=== PATIENT | male | born 1960 | race Caucasian/White ===

== ENCOUNTER → 2022-06-08 | Outpatient (CLI) | payer BC ==
[2022-06-08 22:46] LABS: HCT 56.4 % (39.6-50.0); MCH 31.6 pg (27.0-32.0); MCHC 31.9 g/dL (32.0-37.0); MCV 98.9 fL (80.0-97.0); Mean Platelet Volume 9.1 fL (9.5-12.2); NRBC Per 100 WBC 0 /100 WBCS (0.0-0.0); Platelet Count 175 X 10*3/uL (140-440); RDW 13.1 % (11.5-14.5); WBC 9.99 X 10*3/uL (4.50-10.00)
[2022-06-08 22:49] LABS: African American GFR (CKD) 84.1 (60.0-200.0); Blood Urea Nitrogen 15.5 mg/dL (9.0-27.0); Non-African American GFR(CKD) 72.6 (60.0-200.0); Potassium 5.1 mmol/L (3.5-5.5)
== END | disposition home or self-care (01) ==
LOC: LABWHC1 15:36
PROVIDERS: ATTEND Internal Medicine Cardiovascular Disease
DX: R94.31 Abnormal electrocardiogram [ECG] [EKG] (principal); R07.2 Precordial pain
CPT/HCPCS: 36415; 80051; 82565; 84520; 85027

== ENCOUNTER 2022-06-12 05:54 | Day surgery (SDC) | payer BC ==
[~2022-06-12 05:54] MED LIST: ALPRAZolam 0.25 MG TAB PO PRN; ALPRAZolam 0.5 MG TAB PO PRN; ASPIRIN 325 MG TAB PO STA; ATORVASTATIN 80 MG TAB PO STA; NITROGLYCERIN SL TABS 0.4 MG TAB SUBLINGUAL PRN; SODIUM CHLORIDE 0.9% 1,000 ML in EMPTY BAG 1 BAG IV SCH
[2022-06-12 06:43] VITALS: RESP 18; TEMP 97.7
[2022-06-12] MEDS ORDERED: HEPARIN SODIUM,PORCINE 2,500 UNIT in SODIUM CHLORIDE 0.9% 250 ML IRRIGATION PRN (07:00)
[2022-06-12] MEDS ORDERED: HEPARIN SODIUM,PORCINE 10,000 UNIT in SODIUM CHLORIDE 0.9% 1,000 ML IRRIGATION PRN (07:00)
[2022-06-12] MEDS ORDERED: fentaNYL (PF) 50 MCG/ML 2 ML AMP ONE (07:18)
[2022-06-12] MEDS ORDERED: HEPARIN SODIUM 1,000 UN/ML (10ML VL) ONE (07:18)
[2022-06-12] MEDS ORDERED: VERAPAMIL 2.5 MG/ML 2 ML AMP ONE (07:19)
[2022-06-12] MEDS ORDERED: fentaNYL (PF) 50 MCG/ML 2 ML AMP IV ONE (07:25)
[2022-06-12] MEDS ORDERED: MIDAZOLAM 2 MG/2 ML VIAL IV ONE (07:25)
[2022-06-12] MEDS ORDERED: LIDOCAINE 1% INJ 10MG/ML (5 ML VIAL-PF) SQ ONE (07:26)
[2022-06-12] MEDS ORDERED: VERAPAMIL SYRINGE (5 MG/10 ML) INTRAARTER ONE (07:27)
[2022-06-12] MEDS: HEPARIN SODIUM 1,000 UN/ML (10ML VL) IV ONE ×2 (07:32→08:26)
[2022-06-12] MEDS ORDERED: CLOPIDOGREL 75 MG TAB ONE (07:54)
[2022-06-12] MEDS ORDERED: CLOPIDOGREL 75 MG TAB PO ONE (08:03)
[2022-06-12] MEDS ORDERED: IOPAMIDOL-370 125ML BTL INJ ONE (08:40)
[2022-06-12] MEDS ORDERED: NITROGLYCERIN 1000MCG/10ML SYRINGE INTRACORON ONE (08:48)
[2022-06-12] MEDS ORDERED: IOPAMIDOL-370 100ML BTL INJ ONE (08:51)
[2022-06-12] MEDS ORDERED: NITROGLYCERIN SL TABS 0.4 MG TAB SUBLINGUAL PRN (08:57)
[2022-06-12] MEDS ORDERED: MAG HYDROX/AL HYDROX/SIMETH 30 ML CUP PO PRN (08:57)
[2022-06-12] MEDS ORDERED: ZOLPIDEM 5 MG TAB PO PRN (08:57)
[2022-06-12] MEDS ORDERED: RX INFO: IV CONTRAST WAS GIVEN 1 EACH MISC MISCELLANE PRN (08:57)
[2022-06-12] MEDS ORDERED: ATROPINE SULFATE 0.1 MG/ML 10ML SYRINGE IV PRN (08:57)
[2022-06-12] MEDS ORDERED: SODIUM CHLORIDE 0.9% 1,000 ML in EMPTY BAG 1 BAG IV SCH (09:00)
--- NOTE | 2022-06-12 09:04 | P.CARDCATH ---
Date of Procedure: 06/12/22 Description of Procedure: PERCUTANEOUS TRANSLUMINAL CORONARY ANGIOPLASTY CLINICAL INFORMATION: The patient is a 62-year-old male was been complaining of chest discomfort, had an abnormal stress test. Underwent cardiac catheterization by Dr. Caraballo and was found to have significant disease involving the distal dominant left circumflex. The procedure as well as the risks and the complications were discussed with the patient who was in full understanding and agreement. PROCEDURE: A 6 Armenian CLS 3.5 guiding catheter was introduced into the system. After cannulating the left main, a 0.014 BMW J wire was advanced across the lesion and positioned distally. Following that a 2.5 x 12 mm Treck balloon was advanced and inflated at 8 miranda atmosphere. Following that a 2.75 x 18 mm Xience leighton point stent was deployed. It was dilated at 14 miranda, after removing the balloon a 2.75 x 15 mm Xience leight[place] point stent was deployed proximal to the first one and dilated at 16 miranda. After the last inflation, after appropriate wait, the balloon and the guidewire were withdrawn back into the guiding catheter. Im ages were obtained and repeated. Those images reveal stable successful stenting. At that point, the guiding catheter, the balloon, and guidewire were removed. The sheath was removed. Hemostasis was obtained with deployment the TR band. There were no immediate complications. The patient was returned to the room in stable condition. Of note, the patient received 3000 units of heparin as well as Plavix. His ACT was followed. There was no immediate complications. He had no significant chest discomfort or EKG changes the inflations. RESULTS: Successful stenting of the distal left circumflex with reduction of stenosis from 95 % to 0 %. RECOMMENDATIONS: The patient will continue on aspirin and Plavix for 6 months without any disruption in addition to aggressive coronary risks modifications. The findings and recommendations were discussed with the patient and the family, they are in full understanding and agreement. Duration of sedation: 23 minutes
--- NOTE | 2022-06-12 11:50 | CC ---
CARDIAC CATHETERIZATION REPORT REFERRING PHYSICIAN: Ashli Mckeon. INDICATION: New onset chest pain with abnormal treadmill stress. PROCEDURE NOTE: After obtaining informed consent, left heart catheterization and coronary angiogram were performed via the right radial artery using standard Pierce catheters. Hemodynamics were obtained with the right Pierce. The patient tolerated the procedure well without any obvious immediate complications. He received 1 mg of Versed and 25 mcg of fentanyl and total sedation time was 18 minutes. Using a micropuncture needle, right radial artery access was obtained with Seldinger technique, and the catheter and wire were floated into the ascending aorta under fluoroscopic guidance. The patient received 5 mg of verapamil and 4000 units of heparin per protocol. Procedure was completed uneventfully. FINDINGS: HEMODYNAMICS: Left ventricular end-diastolic pressure is 12 mm. There is no significant gradient across the aortic valve. LEFT VENTRICULOGRAM: Not performed. ANGIOGRAPHIC DATA: LEFT MAIN CORONARY ARTERY: Left main coronary artery is a normal-sized vessel and is free of stenosis. Divides into left anterior descending coronary artery and circumflex coronary artery. CIRCUMFLEX CORONARY ARTERY: Circumflex coronary artery gives off a high OM branch that has a 40-50 percent stenosis. Distal circumflex coronary artery has a groove circ has a focal 95% stenosis. LEFT ANTERIOR DESCENDING CORONARY ARTERY: LAD and its branches are free of significant stenosis. RIGHT CORONARY ARTERY: Right coronary artery is a nondominant vessel shows moderate to severe diffuse disease involving proximal and mid areas. CONCLUSIONS: 1. Severe focal stenosis of at least 95% in circumflex coronary artery. 2. 40-50 percent stenosis involving first OM branch. 3. Diffuse disease involving the proximal nondominant right coronary artery. PLAN: We believe patient's symptoms are related to the circumflex coronary artery lesions and patient will undergo angioplasty with stent placement of the same. MMODL / IJN: [id number] /
--- NOTE | 2022-06-12 11:50 | LTR ---
DATE OF SERVICE: 06/12/2022 RE: Surendra Murraykatty Dear Ashli: I performed cardiac catheterization on Surendra Louis. A detailed cardiac catheterization note is enclosed for your records. In brief, cardiac catheterization revealed a focal 95% stenosis involving circumflex coronary artery which is responsible for his symptoms, abnormal stress test and patient will undergo stent of the same. Thank you for giving me the privilege to participate in the care of this pleasant gentleman. Sincerely, MMCLAUDIAL / IJN: [id number] /
[2022-06-12 12:22] VITALS: BP 118/58; PULSE 47
[2022-06-12] MEDS ORDERED: FAMOTIDINE 20 MG TAB PO SCH (21:00)
[2022-06-13] MEDS ORDERED: METOPROLOL SUCCINATE (ER) 25 MG TAB.ER.24H PO SCH (09:00)
[2022-06-13] MEDS ORDERED: ASPIRIN 81 MG PO SCH (09:00)
[2022-06-13] MEDS ORDERED: ISOSORBIDE MONONITRATE ER 30 MG TAB.ER.24H PO SCH (09:00)
[2022-06-13] MEDS ORDERED: ATORVASTATIN 40 MG TAB PO SCH (09:00)
[2022-06-13] MEDS ORDERED: CLOPIDOGREL 75 MG TAB PO SCH (09:00)
== END 2022-06-12 13:22 | disposition home or self-care (01) ==
LOC: CATHCVL 05:54
PROVIDERS: ATTEND Internal Medicine Cardiovascular Disease
DX: I25.10 Atherosclerotic heart disease of native coronary artery without angina pectoris (principal); N52.9 Male erectile dysfunction, unspecified; K21.9 Gastro-esophageal reflux disease without esophagitis; F17.210 Nicotine dependence, cigarettes, uncomplicated; Z79.899 Other long term (current) drug therapy; Z82.49 Family history of ischemic heart disease and other diseases of the circulatory system; Z82.5 Family history of asthma and other chronic lower respiratory diseases
CPT/HCPCS: 93458; C9600; C1769 ×2; C1887; C1894; C1725; C1874 ×2; J2250; J2001; J3010; J1644; Q9967 ×2

== ENCOUNTER 2022-06-19 15:49 | Inpatient (IN) | payer BC ==
[2022-06-19] MEDS ORDERED: HEPARIN SODIUM 1,000 UN/ML (10ML VL) IV PRN (16:16)
[2022-06-19] MEDS ORDERED: HEPARIN SOD,PORK IN 0.45% NACL 25,000 UNIT in 0.45% NACL 1 250ML.BAG IV SCH (16:30)
--- NOTE | 2022-06-19 16:40 | XR ---
EXAMINATION TYPE: XR chest 1V portable DATE OF EXAM: 06/19/2022 4:33 PM COMPARISON: None TECHNIQUE: XR chest 1V portable Portable AP radiograph of the chest. CLINICAL INDICATION:Male, 62 years old with history of chest pain; FINDINGS: Lungs/Pleura: There is no evidence of pleural effusion, focal consolidation, or pneumothorax. Pulmonary vascularity: Unremarkable. Heart/mediastinum: Cardiomediastinal silhouette is unremarkable. Musculoskeletal: No acute osseous pathology. IMPRESSION: No acute cardiopulmonary disease/process.
[2022-06-19] MEDS ORDERED: HEPARIN SODIUM 1,000 UN/ML (10ML VL) IV ONE (16:47)
[2022-06-19] MEDS ORDERED: NALOXONE 0.4 MG/ML 1 ML VIAL IV PRN (17:04)
--- NOTE | 2022-06-19 17:08 | ED ---
General Adult HPI - General Chief complaint: Chest Pain Stated complaint: Chest Pain Time Seen by Provider: 06/19/22 16:13 Source: patient, EMS, RN notes reviewed, old records reviewed Mode of arrival: EMS Limitations: no limitations - History of Present Illness Initial comments: Patient is a 62-year-old male who is transferred here from [facility] for chest pain. Patient recently had stents placed by Dr. Caraballo. Arrangements were made for direct admit, however there are no available beds here so patient was transferred to the emergency department. When he arrived I evaluated the patient. Plans for already made for admission under Dr. Vickers. Dr. Caraballo was consulted. Patient currently has no chest pain but states he has been having on again off again chest pain, that was worse last night. Was relieved with nitroglycerin this morning. Outpatient workup of the other facility showed normal troponin. EKG unremarkable. After discussion with the pulling machine operator as well as primary care physician, patient was transferred here for admission. Request was made to place the patient on a heparin drip. He already received 324 mg of aspirin at the other facility. Currently is chest pain-free. His no acute complaints at this time. Stents were placed on June 12. That was one week ago. - Related Data Home Medications Medication Instructions Recorded Confirmed Aspirin 81 mg PO DAILY 06/11/22 06/19/22 Atorvastatin [Lipitor] 40 mg PO DAILY 06/11/22 06/19/22 Famotidine [Pepcid] 20 mg PO BID 06/11/22 06/19/22 Isosorbide Mononitrate ER [Imdur] 30 mg PO DAILY 06/11/22 06/19/22 Metoprolol Succinate [Metoprolol 25 mg PO DAILY 06/11/22 06/19/22 Succinate ER] Nitroglycerin Sl Tabs [Nitrostat] 0.4 mg SUBLINGUAL Q5M PRN 06/11/22 06/19/22 Previous Rx's Medication Instructions Recorded Clopidogrel [Plavix] 75 mg PO DAILY #90 tab 06/12/22 Allergies Allergy/AdvReac Type Severity Reaction Status Date / Time No Known Allergies Allergy Verified 06/19/22 16:48 Review of Systems ROS Statement: Those systems with pertinent positive or pertinent negative responses have been documented in the HPI. Review of Systems: CONST: Denies fever EYES: Denies blurry vision ENT: Denies nasal congestion C/V: Denies Chest pain RESP: Denies shortness of breath GI: Denies abdominal pain : Denies dysuria SKIN: Denies rash. MSK: Denies joint pain. NEURO: Denies headache ROS Other: All systems not noted in ROS Statement are negative. Past Medical History Past Medical History: Chest Pain / Angina, GERD/Reflux, Hyperlipidemia, Hypertension Additional Past Medical History / Comment(s): intermittent chest pain for about a month, fatigue recently, varicose veins, increasing heartburn History of Any Multi-Drug Resistant Organisms: None Reported Past Surgical History: Orthopedic Surgery Additional Past Surgical History / Comment(s): hydrocele repair, right shoulder rotator cuff repair Past Anesthesia/Blood Transfusion Reactions: No Reported Reaction Past Psychological History: No Psychological Hx Reported Smoking Status: Former smoker Past Alcohol Use History: Rare Past Drug Use History: None Reported General Exam - General Exam Comments Initial Comments: General: Appears in no acute distress. HEAD: Normal with no signs of head trauma. EYES: PERRLA, EOMI, conjunctiva normal, no discharge. ENT: Hearing grossly intact, normal oropharynx. RESPIRATORY: Clear breath sounds bilaterally. No wheezes, rales, or rhonchi. C/V: Bradycardia with a history of bradycardia. Normal sinus rhythm. S1 and S2 auscultated, no edema, peripheral pulses 2+ and intact throughout ABD: Abd is soft, nontender, nondistended EXT: Normal range of motion, no obvious deformity SKIN: No rashes or lesions observed on exposed skin. NEURO: Alert and oriented 4. No focal deficits. Limitations: no limitations Course Vital Signs 06/19/22 06/19/22 16:01 16:12 Pulse Rate 48 L Pulse Rate [ 48 L Manager Commission ] Respiratory 16 Rate Blood Pressure 139/91 O2 Sat by Pulse 99 Oximetry Medical Decision Making - Medical Decision Making Based on the patient's presentation and physical exam, I'm concerned for cardiac etiology for his current symptoms. Currently is asymptomatic. As already agreed upon come patient will be started on a heparin drip. He already received aspirin. We'll repeat blood tests here. We'll trend the troponin. Echo will be ordered. He was in agreement this plan. Vital signs are within normal limits. Patient is chronic bradycardia. EKG shows no signs of acute ischemia. Chest x-ray shows no acute cardiopulmo nary process. Laboratory studies are remarkable for elevated troponin of 0.044.Troponin at outpatient facility was negative. I did notify cardiology on- call, Dr. Alonso. He was in agreement with the plan otherwise. Echo was ordered. Patient will be admitted to Dr. Vickers in stable condition. Patient is asymptomatic at this time. Vital signs remained within normal limits. - Lab Data Result diagrams: 06/19/22 17:04 06/19/22 17:04 - EKG Data -: EKG Interpreted by Me EKG Comments: 12-lead Electrocardiogram Interpretation Note EKG was reviewed and interpreted by myself. 12-lead ECG performed at 1621 is interpreted by me as revealing sinus bradycardia at a rate of 51 beats per minute. axis is normal. NV interval is 155 ms, QRS duration is 85 ms, QTc is 419 ms.. There were no ST or T wave abnormalities to suggest myocardial ischemia or injury. R wave progression across the precordium was satisfactory. By my interpretation this EKG is non-diagnostic for acute ischemia. No prior EKG for comparison. Disposition Clinical Impression: Unstable angina, Chest pain, NSTEMI (non-ST elevated myocardial infarction) Narrative: recent cardiac stenting Disposition: ADMITTED IP TO THIS HOSP Condition: Stable Time of Disposition: 17:00
[2022-06-19 17:16] LABS: Basophils # (A) 0.1 k/uL (0-0.2); Basophils % (A) 1 %; Eosinophils # (A) 0.2 k/uL (0-0.7); Eosinophils % (A) 3 %; HGB 15.5 gm/dL (13.0-17.5); Lymphocytes # (A) 2.9 k/uL (1.0-4.8); Lymphocytes % (A) 41 %; MCH 32.6 pg (25.0-35.0); MCHC 32.2 g/dL (31.0-37.0); MCV 101.2 fL (80.0-100.0); Mean Platelet Volume 7.7; Monocytes # (A) 0.5 k/uL (0-1.0); Monocytes % (A) 7 %; Neutrophils # (A) 3.3 k/uL (1.3-7.7); Neutrophils % (A) 46 %; Platelet Count 187 k/uL (150-450); RBC 4.74 m/uL (4.30-5.90); RDW 12.5 % (11.5-15.5); WBC 7.1 k/uL (3.8-10.6)
[2022-06-19 17:25] LABS: ALT 24 U/L (4-49); AST 53 U/L (17-59); African American GFR (CKD) >90 (>60 ml/min/1.73 sqM); Albumin 3.8 g/dL (3.5-5.0); Alkaline Phosphatase 63 U/L (38-126); Anion Gap 4 mmol/L; Blood Urea Nitrogen 24 mg/dL (9-20); Calcium 9.6 mg/dL (8.4-10.2); Carbon Dioxide 30 mmol/L (22-30); Chloride 106 mmol/L (98-107); Glucose 92 mg/dL (74-99); Magnesium 1.8 mg/dL (1.6-2.3); Non-African American GFR(CKD) 86 (>60 ml/min/1.73 sqM); Potassium 4.6 mmol/L (3.5-5.1); Sodium 140 mmol/L (137-145); Total Bilirubin 0.4 mg/dL (0.2-1.3); Total Protein 6.4 g/dL (6.3-8.2)
[2022-06-19 17:31] LABS: Partial Thromboplastin Time 26.2 sec (22.0-30.0); Prothrombin Time 10.5 sec (9.0-12.0)
[2022-06-19] MEDS: FAMOTIDINE 20 MG TAB PO SCH (20:15)
[2022-06-20 08:08] LABS: Basophils % (A) 1 %; Eosinophils # (A) 0.2 k/uL (0-0.7); Eosinophils % (A) 2 %; HCT 51.1 % (39.0-53.0); HGB 16.1 gm/dL (13.0-17.5); Lymphocytes # (A) 2.7 k/uL (1.0-4.8); Lymphocytes % (A) 37 %; MCHC 31.6 g/dL (31.0-37.0); MCV 101.4 fL (80.0-100.0); Mean Platelet Volume 7.3; Monocytes # (A) 0.5 k/uL (0-1.0); Monocytes % (A) 6 %; Neutrophils # (A) 3.7 k/uL (1.3-7.7); Neutrophils % (A) 51 %; Platelet Count 168 k/uL (150-450); RBC 5.04 m/uL (4.30-5.90); RDW 12.6 % (11.5-15.5); WBC 7.3 k/uL (3.8-10.6)
[2022-06-20] MEDS ORDERED: ALPRAZolam 0.25 MG TAB PO PRN (08:24)
[2022-06-20] MEDS ORDERED: ATORVASTATIN 80 MG TAB PO STA (08:24)
[2022-06-20] MEDS ORDERED: ALPRAZolam 0.5 MG TAB PO PRN (08:24)
[2022-06-20] MEDS ORDERED: NITROGLYCERIN SL TABS 0.4 MG TAB SUBLINGUAL PRN (08:24)
[2022-06-20] MEDS ORDERED: ASPIRIN 325 MG TAB PO STA (08:24)
[2022-06-20 08:30] LABS: Prothrombin Time 11.2 sec (9.0-12.0)
[2022-06-20] MEDS: CLOPIDOGREL 75 MG TAB PO SCH (08:49)
[2022-06-20] MEDS: SODIUM CHLORIDE 0.9% 1,000 ML in EMPTY BAG 1 BAG IV SCH ×2 (08:49→20:59)
[2022-06-20] MEDS: METOPROLOL SUCCINATE (ER) 25 MG TAB.ER.24H PO SCH (08:49)
[2022-06-20] MEDS: FAMOTIDINE 20 MG TAB PO SCH ×2 (08:49→21:01)
[2022-06-20] MEDS ORDERED: ATORVASTATIN 40 MG TAB PO SCH (09:00)
[2022-06-20] MEDS ORDERED: ASPIRIN 81 MG PO SCH (09:00)
[2022-06-20] MEDS ORDERED: ISOSORBIDE MONONITRATE ER 30 MG TAB.ER.24H PO SCH (09:00)
--- NOTE | 2022-06-20 09:07 | P.HPIM ---
History of Present Illness This is a pleasant 62 years old male with past medical history of GERD/Reflux, Hyperlipidemia, Hypertension, Patient was transferred from [facility] Patient originally presents because of chest pain, 3 times last week prior to coming to the hospital. Chest pain was central, nonradiating about 10/10 on admission but currently resolved 0/10. Associated with mild headache with no dizziness or syncope. No weakness or numbness. No dyspnea or palpitation. No change in urine or bowel habits. No fever. He was taking his medication on aspirin and Plavix as she supposed to be as he has recent cardiac cath about 1-2 weeks earlier. He quit smoking about 2 weeks ago. No colorless to drugs. Patient status currently getting ready to go for cardiac cath Vitals are stable. Labs here show an unremarkable CBC, INR, BMP and liver enzymes. Troponin are elevated 0.043. Chest x-ray: No acute cardiopulmonary process. EKG: Sinus bradycardia at 51 Patient is already on heparin drip and continued on his home dose of aspirin and Plavix Reviewing the chart and [facility] showing chest x-ray with no acute findings per Reports. Sodium 144, potassium 4.2, AST 26 and ALT 26, creatinine 1.0, glucose 100, total bilirubin 0.5. WBC 8.3, hemoglobin 15.9, with a count 184. Review of Systems CONSTITUTIONAL: No fever, no malaise, no fatigue. HEENT: No recent visual problems or hearing problems. Denied any sore throat. CARDIOVASCULAR: No orthopnea, PND, no palpitations, no syncope. PULMONARY: No shortness of breath, no cough, no hemoptysis. GASTROINTESTINAL: No diarrhea, no nausea, no vomiting, no abdominal pain. Normoactive bowel sounds. NEUROLOGICAL: No headaches, no weakness, no numbness. HEMATOLOGICAL: Denies any bleeding or petechiae. GENITOURINARY: Denies any burning micturition, frequency, or urgency. MUSCULOSKELETAL/RHEUMATOLOGICAL: Denies any joint pain, swelling, or any muscle pain. ENDOCRINE: Denies any polyuria or polydipsia. Past Medical History Past Medical History: Chest Pain / Angina, GERD/Reflux, Hyperlipidemia, Hypertension Additional Past Medical History / Comment(s): intermittent chest pain for about a month, fatigue recently, varicose veins, increasing heartburn History of Any Multi-Drug Resistant Organisms: None Reported Past Surgical History: Orthopedic Surgery Additional Past Surgical History / Comment(s): hydrocele repair, right shoulder rotator cuff repair Past Anesthesia/Blood Transfusion Reactions: No Reported Reaction Past Psychological History: No Psychological Hx Reported Smoking Status: Former smoker Past Alcohol Use History: Rare Additional Past Alcohol Use History / Comment(s): quit smoking last , 1 1/2ppd, has smoked since about the age of 10 Past Drug Use History: None Reported Medications and Allergies Home Medications Medication Instructions Recorded Confirmed Type Aspirin 81 mg PO DAILY 06/11/22 06/19/22 History Atorvastatin [Lipitor] 40 mg PO DAILY 06/11/22 06/19/22 History Famotidine [Pepcid] 20 mg PO BID 06/11/22 06/19/22 History Isosorbide Mononitrate ER [Imdur] 30 mg PO DAILY 06/11/22 06/19/22 History Metoprolol Succinate [Metoprolol 25 mg PO DAILY 06/11/22 06/19/22 History Succinate ER] Nitroglycerin Sl Tabs [Nitrostat] 0.4 mg SUBLINGUAL Q5M PRN 06/11/22 06/19/22 History Clopidogrel [Plavix] 75 mg PO DAILY #90 tab 06/12/22 06/19/22 Rx Allergies Allergy/AdvReac Type Severity Reaction Status Date / Time No Known Allergies Allergy Verified 06/19/22 16:48 Physical Exam Vitals: Vital Signs Temp Pulse Pulse Resp BP BP Pulse Ox 06/20/22 04:00 56 L 16 112/73 97 06/20/22 00:00 63 16 104/62 96 06/19/22 20:00 97.9 F 54 L 16 131/71 96 06/19/22 18:47 18 06/19/22 18:31 98.4 F 64 18 144/79 97 06/19/22 16:12 48 L 06/19/22 16:01 48 L 16 139/91 99 Intake and Output 06/19/22 06/19/22 06/20/22 14:59 22:59 06:59 Intake Total 240 549.503 Balance 240 549.503 Intake: Intake, IV Titration 64.503 Amount Heparin Sod,Pork in 0.45% 64.503 NaCl 25,000 unit In 0.45 % NaCl 1 250ml.bag @ 12 UNITS/KG/HR 9.798 mls/hr IV .Q24H SUMIT Rx#: [id number] Oral 240 485 Other: Voiding Method Toilet Toilet # Voids 0 1 # Bowel Movements 0 Weight 81.647 kg GENERAL: The patient is alert and oriented x3, not in any acute distress. Well developed, well nourished. HEENT: Pupils are round and equally reacting to light. EOMI. No scleral icterus. No conjunctival pallor. Normocephalic, atraumatic. No pharyngeal erythema. No thyromegaly. CARDIOVASCULAR: S1 and S2 present. No murmurs, rubs, or gallops. PULMONARY: Chest is clear to auscultation, no wheezing or crackles. ABDOMEN: Soft, nontender, nondistended, normoactive bowel sounds. No palpable organomegaly. MUSCULOSKELETAL: No joint swelling or deformity. EXTREMITIES: No cyanosis, clubbing, or pedal edema. NEUROLOGICAL: Gross neurological examination did not reveal any focal deficits. SKIN: No rashes. No petechiae Results CBC & Chem 7: 06/20/22 07:48 06/19/22 17:04 Labs: Abnormal Lab Results - Last 24 Hours (Table) 06/19/22 06/19/22 06/19/22 Range/Units 17:04 17:04 17:04 MCV 101.2 H (80.0-100.0) fL APTT (22.0-30.0) sec BUN 24 H (9-20) mg/dL Troponin I 0.044 H* (0.000-0.034) ng/mL 06/19/22 06/19/22 06/19/22 Range/Units 20:31 22:35 22:35 MCV (80.0-100.0) fL APTT 58.4 H (22.0-30.0) sec BUN (9-20) mg/dL Troponin I 0.047 H* 0.040 H* (0.000-0.034) ng/mL Thrombosis Risk Factor Assmnt - Choose All That Apply Each Factor Represents 1 point: Age 41-60 years, Obesity (BMI >25) Thrombosis Risk Factor Assessment Total Risk Factor Score: 2 Thrombosis Risk Factor Assessment Level: Low Risk Assessment and Plan Assessment: Chest pain, rule out cardiac causes. Hypertension Hyperlipidemia History of coronary artery disease Plan: This is a pleasant 8 years old male who presents with chest pain and elevated troponin Continue with aspirin and Plavix He's on heparin drip Cardiology consult Labs and medication were reviewed.. Continue same treatment. Continue with symptomatic treatment. Resume home medication. Monitor lytes and vitals. DVT and GI prophylaxis. Further recommendations depends on the clinical course of the patient DVT prophylaxis: heparin GI Prophylaxis: Pepcid Prognosis is guarded
[2022-06-20] MEDS ORDERED: IV FLUID CONTINUATION 1,000 ML IV ONE (10:15)
[2022-06-20] MEDS ORDERED: MIDAZOLAM 2 MG/2 ML VIAL IV ONE (10:21)
[2022-06-20] MEDS ORDERED: fentaNYL (PF) 50 MCG/ML 2 ML AMP IV ONE (10:21)
[2022-06-20] MEDS ORDERED: LIDOCAINE 1% INJ 10MG/ML (5 ML VIAL-PF) SQ ONE (10:22)
[2022-06-20] MEDS ORDERED: VERAPAMIL SYRINGE (5 MG/10 ML) INTRAARTER ONE (10:28)
[2022-06-20] MEDS ORDERED: HEPARIN SODIUM 1,000 UN/ML (10ML VL) IV ONE (10:33)
[2022-06-20] MEDS ORDERED: IOPAMIDOL-370 125ML BTL INJ ONE (10:49)
[2022-06-20] MEDS ORDERED: RX INFO: IV CONTRAST WAS GIVEN 1 EACH MISC MISCELLANE PRN (10:59)
--- NOTE | 2022-06-20 12:56 | CA ---
Transthoracic Echo Report Name: Surendra Louis Age: 62 Gender: M : 1960 Exam Date: 06/20/2022 08:45 Exam Location: [facility] Ht (in): 70 Wt (lb): 180 Ordering Physician: Pino Cancino MD Attending/Referring Phys: Special Needs Caregiver Sarah Nogueira RDCS Procedure CPT: Indications: Chest Pain Cardiac Hx: Hx of htn and hyperlipidemia, cat with 2 stents Technical Quality: Good Contrast 1: Total Dose (mL): Contrast 2: Total Dose (mL): MEASUREMENTS (Male / Female) Normal Values 2D ECHO LV Diastolic Diameter PLAX 3.9 cm 4.2 - 5.9 / 3.9 - 5.3 cm LV Systolic Diameter PLAX 1.5 cm IVS Diastolic Thickness 1.3 cm 0.6 - 1.0 / 0.6 - 0.9 cm LVPW Diastolic Thickness 1.4 cm 0.6 - 1.0 / 0.6 - 0.9 cm LV Relative Wall Thickness 0.7 LVOT Diameter 1.6 cm LA Volume 48.2 cm??? 18 - 58 / 22 - 52 cm??? M-MODE MV E Point Septal Separation 2.4 cm DOPPLER AV Peak Velocity 291.4 cm/s AV Peak Gradient 34.0 mmHg AV Mean Velocity 224.4 cm/s AV Mean Gradient 22.1 mmHg AV Velocity Time Integral 76.6 cm AI Peak Velocity 290.9 cm/s AI Peak Gradient 33.8 mmHg AI Pressure Half Time 520.6 ms LVOT Peak Velocity 84.6 cm/s LVOT Peak Gradient 2.9 mmHg AV Area Cont Eq pk 0.6 cm??? MV Area PHT 5.0 cm??? MR Peak Velocity 135.3 cm/s MR Peak Gradient 7.3 mmHg Mitral E Point Velocity 80.4 cm/s Mitral A Point Velocity 57.8 cm/s Mitral E to A Ratio 1.4 MV Deceleration Time 150.4 ms MV E' Velocity 8.8 cm/s Mitral E to MV E' Ratio 9.1 TR Peak Velocity 193.4 cm/s TR Peak Gradient 15.0 mmHg Right Ventricular Systolic Press 18.8 mmHg FINDINGS Left Ventricle Mildly increased septal wall thickness. Left ventricular ejection fraction is estimated at 55-60 %. Left ventricular cavity size normal. Right Ventricle Normal right ventricular size and function. Right Atrium Normal right atrial size. Left Atrium Normal left atrial size. No evidence for an atrial septal defect. No spontaneous echo contrast seen in the left atrium. Mitral Valve Structurally normal mitral valve. Mild mitral regurgitation. Aortic Valve Moderate aortic stenosis with a peak gradient of 34 mmHg and a mean gradient of 22 mmHg. Mild aortic regurgitation. Tricuspid Valve Structurally normal tricuspid valve without significant stenosis. Pulmonary artery systolic pressure is normal. Mild tricuspid regurgitation. Pulmonic Valve Structurally normal pulmonic valve without significant stenosis. There is no pulmonic regurgitation. Pericardium Thickened pericardium but no significant effusion Aorta Normal aortic root dimension. CONCLUSIONS LV size and systolic function is normal. There is mild concentric LVH. Atria are normal in size. There is mild mitral and tricuspid insufficiency. There is moderate aortic stenosis and mild regurgitation. Pericardium appears to be taken but no significant effusion Previewed by: Dr. Kathy Uribe MD (Electronically Signed) Final Date: 20 June 2022 12:55
--- NOTE | 2022-06-20 13:14 | CC ---
CARDIAC CATHETERIZATION REPORT INDICATION: [id number] [place]. PROCEDURE NOTE: After obtaining informed consent, left heart catheterization and coronary angiogram were performed via the right radial artery using size 3.5 Pierce catheters. We did not obtain any hemodynamics on him. The right coronary artery was not injected, as it was a small nondominant vessel that was visualized a week ago. The right radial artery access was obtained using a micropuncture needle with Seldinger technique. Patient received 5 mg of verapamil and 4000 units of heparin per protocol. Total sedation time was 18 minutes. A TR band was used per protocol for hemostasis. FINDINGS: HEMODYNAMICS: Central aortic pressure is 140/70 mm. LEFT VENTRICULOGRAM: Left ventriculogram was not performed. ANGIOGRAPHIC DATA: Left main coronary artery free of stenosis. It divides into left anterior descending coronary artery and circumflex coronary artery. LAD and its branches are free of significant stenosis. The previously stented circumflex coronary artery appears normal. The stent appears patent. There is no evidence of stent thrombosis. There is a high OM branch that shows about 50% stenosis; if anything, it looks better than on the previous cath. CONCLUSIONS: Patent stent within the circumflex coronary artery. Patient's chest discomfort is of unclear significance. We will continue him on medical therapy. MMODL / IJN: [id number] /
[2022-06-21 05:52] LABS: Basophils % (A) 1 %; Eosinophils # (A) 0.1 k/uL (0-0.7); Eosinophils % (A) 2 %; HCT 49.1 % (39.0-53.0); HGB 15.7 gm/dL (13.0-17.5); Lymphocytes # (A) 2.6 k/uL (1.0-4.8); Lymphocytes % (A) 38 %; MCH 32.6 pg (25.0-35.0); MCHC 31.9 g/dL (31.0-37.0); MCV 102.3 fL (80.0-100.0); Macrocytosis Slight; Mean Platelet Volume 7.4; Monocytes # (A) 0.5 k/uL (0-1.0); Monocytes % (A) 7 %; Neutrophils # (A) 3.4 k/uL (1.3-7.7); Neutrophils % (A) 50 %; Platelet Count 182 k/uL (150-450); WBC 6.8 k/uL (3.8-10.6)
[2022-06-21 06:07] LABS: African American GFR (CKD) >90 (>60 ml/min/1.73 sqM); Anion Gap 5 mmol/L; Blood Urea Nitrogen 19 mg/dL (9-20); Calcium 8.7 mg/dL (8.4-10.2); Carbon Dioxide 27 mmol/L (22-30); Chloride 108 mmol/L (98-107); Glucose 91 mg/dL (74-99); Magnesium 1.7 mg/dL (1.6-2.3); Non-African American GFR(CKD) 84 (>60 ml/min/1.73 sqM); Potassium 4.3 mmol/L (3.5-5.1); Sodium 140 mmol/L (137-145)
[2022-06-21] MEDS ORDERED: HEPARIN SODIUM,PORCINE 2,500 UNIT in SODIUM CHLORIDE 0.9% 250 ML IRRIGATION PRN (07:00)
[2022-06-21] MEDS ORDERED: HEPARIN SODIUM,PORCINE 10,000 UNIT in SODIUM CHLORIDE 0.9% 1,000 ML IRRIGATION PRN (07:00)
[2022-06-21] MEDS: FAMOTIDINE 20 MG TAB PO SCH (08:46)
[2022-06-21] MEDS: METOPROLOL SUCCINATE (ER) 25 MG TAB.ER.24H PO SCH (08:46)
[2022-06-21] MEDS: CLOPIDOGREL 75 MG TAB PO SCH (08:46)
[2022-06-21] MEDS ORDERED: ASPIRIN 81 MG PO SCH (09:00)
[2022-06-21] MEDS ORDERED: ATORVASTATIN 40 MG TAB PO SCH (09:00)
[2022-06-21] MEDS ORDERED: HEPARIN SODIUM,PORCINE/PF 5,000 UNIT/0.5 ML SYRINGE SQ SCH (09:00)
[2022-06-21] MEDS ORDERED: ISOSORBIDE MONONITRATE ER 60 MG TAB.ER.24H PO SCH (09:00)
[2022-06-21 10:10] VITALS: BP 139/89; PULSE 56; RESP 18; TEMP 98.3
--- NOTE | 2022-06-21 22:56 | P.DS ---
Providers Date of admission: 06/19/22 17:04 Attending physician: Alex Vickers Consults: 06/19/22 16:16 Consult Physician Routine Consulting Provider: Eric Shearer Consult Reason/Comments: chest pain Do you want consulting provider notified?: Yes 06/19/22 17:55 Consult Physician Routine Consulting Provider: [facility] Consult Reason/Comments: chest pain, unstable angina vs. nstemi Do you want consulting provider notified?: Yes, Notify in am Primary care physician: Vicente Vasques Hospital Course: Assessment: diagnosis: Chest pain,cardiac causes ruled out with negative cardiac cath , resolved prior to discharge Hypertension Hyperlipidemia History of coronary artery disease hospital course: This is a pleasant 62 years old male with past medical history of GERD/Reflux, Hyperlipidemia, Hypertension, Patient was transferred from [facility] Patient originally presents because of chest pain, 3 times last week prior to coming to the hospital. Troponin are elevated 0.043. he underwent cardiac cath with cardiology team, which showed patent stent of circumflex artery today pt denies chest pain , no dyspnea, no change in urine and bowel habits , no fever pt is cleared by caridiologist , and pt is eager to go home Problems and management plan were discussed with the patient and he verbalized understanding and acceptance Patient was found stable and can be discharged home in guarded prognosis however he needs follow-up as an outpatient. Patient was instructed to follow up with PCP within one week and patient agrees Patient was instructed to follow up with scoop machine operator Dr. shearer in 1-2 weeks. Physical exam Gen: patient is a AAOx3, no distress CVS: S1-S2, RRR, no murmur Lungs: B/L CTA, no wheezing Abdomen: soft, no distention, no tenderness, positive bowel sounds Extremity: no leg edema or induration Time spent more than 35 minutes Patient Condition at Discharge: Stable Plan - Discharge Summary Discharge Rx Participant: No New Discharge Prescriptions: New Isosorbide Mononitrate ER [Imdur] 60 mg PO DAILY #30 tab Continue Metoprolol Succinate [Metoprolol Succinate ER] 25 mg PO DAILY Famotidine [Pepcid] 20 mg PO BID Atorvastatin [Lipitor] 40 mg PO DAILY Aspirin 81 mg PO DAILY Nitroglycerin Sl Tabs [Nitrostat] 0.4 mg SUBLINGUAL Q5M PRN PRN Reason: Chest Pain Clopidogrel [Plavix] 75 mg PO DAILY #90 tab Discontinued Isosorbide Mononitrate ER [Imdur] 30 mg PO DAILY Discharge Medication List Aspirin 81 mg PO DAILY 06/11/22 [History] Atorvastatin [Lipitor] 40 mg PO DAILY 06/11/22 [History] Famotidine [Pepcid] 20 mg PO BID 06/11/22 [History] Metoprolol Succinate [Metoprolol Succinate ER] 25 mg PO DAILY 06/11/22 [History] Nitroglycerin Sl Tabs [Nitrostat] 0.4 mg SUBLINGUAL Q5M PRN 06/11/22 [History] Clopidogrel [Plavix] 75 mg PO DAILY #90 tab 06/12/22 [Rx] Isosorbide Mononitrate ER [Imdur] 60 mg PO DAILY #30 tab 06/21/22 [Rx] Follow up Appointment(s)/Referral(s): Vicente Vasques MD [Primary Care Provider] - 1-2 days (Patient will make own follow-up) Eric Shearer MD [STAFF PHYSICIAN] - 2 Weeks (Patient already has a follow-up from recent cath) Patient Instructions/Handouts: *Surgery [facility] - After Heart Catheterization - Geography Head Instructions Activity/Diet/Wound Care/Special Instructions: heart healthy diet activity is restricted till you see your doctor Discharge Disposition: HOME WITH HOME HEALTH SERVICES
== END 2022-06-21 11:22 | disposition home health service (06) | DRG 287 ==
LOC: EC 15:49 → 3SCARD 17:04
PROVIDERS: ADMIT Hospitalist; ATTEND Hospitalist
PROC: 4A023N7 Measurement of Cardiac Sampling and Pressure, Left Heart, Percutaneous Approach (ICD-10-PCS; principal; 2022-06-20 11:00)
PROC: B2111ZZ Fluoroscopy of Multiple Coronary Arteries using Low Osmolar Contrast (ICD-10-PCS; principal; 2022-06-20 11:00)
DX: I25.110 Atherosclerotic heart disease of native coronary artery with unstable angina pectoris (principal); I10 Essential (primary) hypertension; R00.1 Bradycardia, unspecified; I08.3 Combined rheumatic disorders of mitral, aortic and tricuspid valves; E78.5 Hyperlipidemia, unspecified; Z79.02 Long term (current) use of antithrombotics/antiplatelets; Z79.82 Long term (current) use of aspirin; Z79.899 Other long term (current) drug therapy; Z87.891 Personal history of nicotine dependence; Z95.5 Presence of coronary angioplasty implant and graft
CPT/HCPCS: 36415; 71045; 80048; 80053; 83735; 84484; 85025; 85610; 85730; 93005; 93306; 93454; 96365; 99285